=== PATIENT | male | born 1950 | race Caucasian/White ===

== ENCOUNTER 2023-04-24 07:51 | Emergency (ER) | payer MEDICARE, SELFPAY ==
[2023-04-24 07:59] VITALS: BP 183/92; PULSE 71; RESP 16; TEMP 36.2; O2SAT 100
[2023-04-24 08:24] LABS: Appearance Urine Clear (Clear); Bilirubin Urine Negative (Negative); Blood Urine Negative (Negative); Color Urine Yellow (Yellow); Glucose Urine UA Negative (Negative); Ketones Urine Trace mg/dL (Negative); Leukocyte Esterase Ur Negative LEU/UL (Negative); Nitrate Urine Negative (Negative); Protein Urine Negative (Negative); Specific Grav Ur 1.016 (1.001-1.035); Urobilinogen Urine 0.2 mg/dL (<2.0)
--- NOTE | 2023-04-24 08:24 | ED.MALEGU ---
HPI - Male Genitourinary General Chief complaint: Urogenital-Male Stated complaint: post op pain Time Seen by Provider: 04/24/23 08:23 Source: patient Mode of arrival: ambulatory Limitations: no limitations History of Present Illness HPI Narrative: 72 yo presents with urinary retention. He was also having post operative pain since surgery at [facility] 2 days ago initially but denies this today. He denies abdominal pain. Last void approximately 8pm. No penile discharge, penile pain, scrotal pain, testicular pain. This has never happened before. He does state he has had prostate issues but has never talked to PCP about this and does not follow with a urologist. No dysuria but does experience pressure. No hematuria but has urgency and frequency. No fevers. Related Data Allergies Allergy/AdvReac Type Severity Reaction Status Date / Time No Known Allergies Allergy Verified 04/24/23 08:19 Exam Narrative: GENERAL: Well-appearing, well-nourished, and in no acute distress. HEAD: Normocephalic, atraumatic. EYES: Non injected, non icteric ENT: Nares clear, no rhinorrhea or epistaxis. NECK: Supple. CHEST: Speaks in full sentences.. No respiratory distress. HEART: Regular rate and rhythm. . ABDOMEN: Soft, nondistended. Non tender to palpation. : Puente catheter draining yellow urine. EXTREMITIES: Normal range of motion. No edema. SKIN: Warm, dry, no rash. NEURO: No focal deficits. Alert and oriented x3. PSYCH: Normal mood and affect. Course Vital Signs Vital signs: Vital Signs Temperature 97.2 F L 04/24/23 07:59 Pulse Rate 71 04/24/23 07:59 Respiratory Rate 16 04/24/23 07:59 Blood Pressure 183/92 H 04/24/23 07:59 Pulse Oximetry 100 04/24/23 07:59 Temperature 97.2 F L 04/24/23 07:59 Pulse Rate 71 04/24/23 07:59 Respiratory Rate 16 04/24/23 07:59 Blood Pressure 183/92 H 04/24/23 07:59 Pulse Oximetry 100 04/24/23 07:59 MDM - Male Genitourinary MDM Narrative Medical decision making narrative: Patient presents with acute inability to void with urinary retention. He did have surgery somewhat recently. Last void was yesterday PM. Bladder scan reveals 800cc urine. Puente catheter inserted prior to my exam. This could be the result of residual anesthesia contributing however I would suspect this is more likely due to enlarged prostate given patient's age and report of prostate related symptoms he has noticed previously. No evidence of urinary tract infection on urinalysis, only trace ketones consistent with very mild dehydration. Stable for discharge home with indwelling Puente to follow up with urology. Strict ED return precautions. Differential Diagnosis Differential diagnosis: Likely urinary tract infection and acute retention of urine Lab Data Attestation: I reviewed the patient's lab results. Labs: Lab Results 04/24/23 Range/Units 08:11 Urine Color Yellow (Yellow) Urine Appearance Clear (Clear) Urine pH 6.0 (5.0-9.0) Ur Specific [place] 1.016 (1.001-1.035) Urine Protein Negative (Negative) mg/dL Urine Glucose (UA) Negative (Negative) mg/dL Urine Ketones Trace H (Negative) mg/dL Ur Blood (Man) Negative (Negative) Urine Nitrate Negative (Negative) Urine Bilirubin Negative (Negative) Urine Urobilinogen 0.2 (<2.0) mg/dL Leukocyte Esterase Rfl Negative (Negative) MALLY/UL Discharge Plan Discharge Clinical Impression: Acute retention of urine Patient Disposition: Home, Self-Care Condition: Stable Instructions: Antibiotic Form, Urinary Retention in Men (ED), Puente Catheter Placement and Care (ED) Additional Instructions: No evidence of a urinary tract infection. Maintain your hydration. As we discussed, you can use the Puente catheter bag OR the more discrete leg bag you will be given. You will follow up with urology. Call to make an appointment. Return to the ED if any new/worsening symptoms such as bleeding, fevers, c
[2023-04-24 08:29] LABS: Add Urine Microscopic? NO
== END 2023-04-24 09:13 | disposition home or self-care (01) ==
PROVIDERS: Emergency Provider Student in an Organized Health Care Education/Training Program
DX: R33.9 Retention of urine, unspecified (principal)
CPT/HCPCS: 51702; 81003; 99283

== ENCOUNTER 2025-04-26 18:12 | Emergency (ER) | payer MEDICARE, SELFPAY ==
--- OUTSIDE RECORDS SUMMARY | 2024-04-17 15:30 | XMS_ITS ---
Author Organization [facility] Address [facility] Marquita Mercedes [facility] [address] [place], [place] [id number] Care Team Providers Care Slag Wheeler Name Role Phone Luís Munoz DO Primary Care Provider UnavailZain Hansen Unavailable [phone] Migration, Provider Unavailable Unavailable REASON FOR VISIT Multum To Medispan Conversion Encounter Medications Medication SIG (Take, Route, Frequency, Duration) Notes Start Date End Date Status Cefuroxime Axetil 250 MG Tablet 1 tab(s) orally 2 times a day; Duration: 10 day(s) 03/13/2016 Active Encounters Encounter Location Date Provider Diagnosis [facility] [place] [address] [address] [facility] [address], [place] [id number] 04/17/2024 Provider Migration Plan Of Treatment No Information Progress Notes * Blayne VALENCIA EDOB:1950 ( 74 yo M)Acc No.[id number]:04/17/2024 Patient: Tarun luci Blayne Mcneil Provider: Elena Landin :1950 A ge:73 Y S ex:Male Date:04/17/2024 Address:[address] [place], [place] [id number] Pcp:Luís Munoz DO Subjective: * Chief Complaints: * M ultum To Medispan Conversion Encounter * Medications: T akingCefuroxime Axetil 250 MG Tablet 1 tab(s) orally 2 times a day Taking Cefuroxime Axetil 250 MG Tablet 1 tab(s) orally 2 times a day * Electronic signature of Prov ider Migration on 04/26/2025 at 06:14 PM INTERNIST MEDICAL DOCTOR MD Sign off status: Pending * Provider: Elena Landin Date: 06/18/2023 Generated for Printi ng/Daniel/Ruma on: 1 06/27/2024 06:14 PM INTERNIST MEDICAL DOCTOR MD
--- NOTE | ~2025-04-26 | XR_ITS ---
EXAMINATION: XR chest 2V 04/26/2025 20:27 INDICATION: Weakness PROCEDURE: 2 view chest COMPARISON: No prior studies for comparison. FINDINGS: The lungs are clear. The cardiomediastinal silhouette is within normal limits. There are no pleural effusions. There is no pneumothorax suspected. IMPRESSION: 1: NO ACUTE CARDIOPULMONARY DISEASE. Reviewed, dictated and finalized at location [facility]
--- OUTSIDE RECORDS SUMMARY | 2025-04-26 18:14 | XMS_ITS | Patient Health Record ---
Author Organization [facility] Address [address] [place], [place] [id number] Care Team Providers Care Density Control Puncher Name Role Phone Luís Munoz DO Primary Care Provider Zain Trevizo Unavailable [phone] Reason For Referral No Information Medications Medication SIG (Take, Route, Frequency, Duration) Notes Start Date End Date Status Cefuroxime Axetil 250 MG Tablet 1 tab(s) orally 2 times a day; Duration: 10 day(s) 03/13/2016 Active Immunizations Vaccine Route Administration Date Status Comme nts Influenza Unknown 11/29/2015 Refused Influenza Unknown 12/20/2015 Refused Social History Social History Additional Details Category Social Info Options Details Social History Occupation Yes business owne r Passive smoke exp: No Smokeless Tobacco No Recreational drug use No Problems Problem Type SNOMED Code ICD Code Onset Dates Problem Status W/U Status Risk Notes Problem Chronic pansinusitis (73996865) Chronic pansinusitis (J32.4) Active confirmed Problem Chronic pansinusitis (73695387) Chronic pansinusitis (J32.4) Active confirmed Plan Of Treatment No Information Insurance Providers Payer Name Payer Address Payer Phone Subscriber Number Group Number Insured Name Patient Relationship to Insured Coverage Start Date Coverage End Date [facility] [address] [address] [place] [address] [id number] Blayne Valencia Self - patient is the insured Medical (General) History Medical History History ICD Code Pertinent Medical History: Eye problems, Sinusitis, Pertinent Medical History: S inusitis, History of Allergies, Throat/Neck problems, High blood pressure, Asthma, Diabetes, Thyroid problems, History of breast cancer, Other, Surgical History Surgery Date(Month/Year) hernia repair 1980 sinus surgery 2004 Sinus surgery 03/08/2016
--- OUTSIDE RECORDS SUMMARY | 2025-04-26 18:14 | XMS_ITS | Clinical Summary ---
Author Organization [facility] Address [address] [place] [address] Care Team Providers Care Investigation Specialist Name Role Phone Luís Munoz MD Primary Care Provider [phone] Source Comments [facility] [employer],non-owned Affiliates and Associated Physician Practices is amultiple site organization consisting of ambulatory clinics and hospital sitesin [place], [place], [place] and [place]. This disclosure is being madepursuant to the Care Everywhere program and may not contain all information available regarding this patient. Last updated 18.[facility] [employer] Social History Tobacco Use Types Packs/Day Years Used Date Smoking Tobacco: Never Assessed Sex and Gender Information Value Date Recorded Sex Assigned at Not on file Legal Sex Male 12:51 PM CDT Gender Identity Not on file Sexual Orientation Not on file Plan of Treatment Health Maintenance Due Date Last Done Comments COLOGUARD (AGES 45-75) - COL ON CA SCREENING 1950 COLON MONITORING 1950 COLONOSCOPY - COLON CA SCREENING 1950 CT COLONOGRAPHY - COLON CA SCREENING 1950 Colorectal Cancer Screening 1950 FIT - COLON CA SCREENING 1950 FLEX SIG - COLON CA SCREENING 1950 LIPID TESTING 1950 HEPATITIS C SCREENING 08/26/1969 DTAP/TDAP/TD VACCINES (1 - Tdap) 08/30/1970 PNEUMOCOCCAL VACCINE 50+ (1 of 1 - PCV) 08/30/2001 ZOSTER VACCINE (1 of 2) 08/30/2001 DEPRESSION SCREENING 05/05/2024 COVID-19 VACCINE (1 - 2024-2 6 season) 2025 INFLUENZA VACCINE (#1) 2025 Respiratory Syncytial Virus (RSV) Vaccine Pt: or over 60 yrs (1 - 1-dose 75+ series) 08/30/2026 HEPATITIS B VACCINE Aged Out No longe r eligible based on patient's age to complete this topic HIB VACCINE Aged Out No longer eligi ble based on patient's age to complete this topic HPV VACCINE Aged Out No longer eligi ble based on patient's age to complete this topic MENINGOCOCCAL (Group B) VACC INE SHARED DECISION-MAKING Aged Out No longer eligibl e based on patient's age to complete this topic MENINGOCOCCAL GROUPS A/C/Y/W VACCINE Aged Out No longer eligible b ased on patient's age to complete this topic Insurance UHC MANAGED MEDICARE ADV Care Teams Investigation Specialist Relationship Specialty Start Date End Date Luís Munoz MD [address] [place] [phone] PCP - General 01/16/21
--- OUTSIDE RECORDS SUMMARY | 2025-04-26 18:14 | XMS_ITS | Clinical Summary ---
Author Organization [facility] Address [address] [address] Care Team Providers Care Talent Acquisition Coordinator Name Role Phone AlexanderLuís sanches Primary Care Provider [phone] Allergies No known active allergies Medications cyanocobalamin 1,000 mcg Tablet Take 1,000 mcg by mouth daily. Active sildenafiL, pulm.hypertensi on, (REVATIO) 20 mg Tablet Take 1 Tablet (20 mg) by mouth 3 times daily. 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 Screening PSA (prostate specific antigen) 2022 Prediabetes 09/20/2020 Erectile dysfunction 05/26/2015 Allergic rhinitis due to pollen 06/04/2011 Dyslipidemia 06/04/2011 Hypertrophy of prostate with out urinary obstruction and other lower urinary tract symptoms (LUTS) 04/09/2010 Encounters Date Type Department Care Team Description 04/20/2025 Prep for Surgery [facility] Surgical Spec [place] [address] [place] [address] Smiley Kendall, RN Right inguinal hernia (Primary Dx) 04/16/2025 External Device Data STL ABSTRACTION Provider, Abstract 04/12/2025 2:45 PM PVC MONITOR History & Physical [facility] Surgical Spec [place] [address] [place] [phone] Mike Cadena MD Right inguinal hernia (Primary Dx) 04/12/2025 Telephone [facility] Surgical Spec [place] [address] [place] [phone] Mike Cadena MD Surgery 04/05/2025 11:15 AM PVC MONITOR Office Visit [facility] Internal Medicine [place] [address] [address] [place] [place] [address] Luís Munoz DO Right inguinal hernia (Primary Dx) 03/28/2025 Telephone [facility] Internal Medicine [place] [address] [address] [place] [phone] Luís Munoz DO Needs Orders Written 03/15/2025 External Device Data STL ABSTRACTION Provider, Abstract 03/01/2025 Refill [facility] Internal Medicine [place] [address] [address] [place] [address] Luís Munoz DO Seasonal allergic rhinitis due to pollen 02/08/2025 External Device Data STL ABSTRACTION Provider, Abstract from Last 3 Months Family History Medical History Relation Name Comments Colon Cancer Father Other Father Alzheimer's Liver Cancer Maternal Grandfather Cancer Mother lymphoma Esophageal Cancer Neg Hx Stomach Cancer Neg Hx Relation Name Status Comments Father Maternal Grandfather Mother Social History Tobacco Use Types Packs/Day Years Used Date Smoking Tobacco: Never Smokeless Tobacco: Never Tobacco Cessation:Counseling Given: Not Answered Alcohol Use Standard Drinks/Week Comments Yes 14 (1 standard drink = 0.6 oz pu re alcohol) couple times per week Financial Resource Strain Answer Date R ecorded How hard is it for you to pa y for the very basics like food, housing, medical care, and heating? Not hard at all 10/22/2021 Food Insecurity Answer Date Recorded In the past 12 months, have you worried that your food would run out before you had money to buy more? Never true 10/22/2021 In the past 12 months, did y ou run out of food and didn't have money to buy more? Never true 10/22/2021 Transportation Needs Answer Date Record ed In the past 12 months, has l ack of transportation kept you from medical appointments or from getting medications? No 10/22/2021 Lack of Transportation (Non-Medical) Not on file 10/22/2021 Feeling Safe Answer Date Recorded Are you in a relationship wi th someone who hurts you emotionally and/or physically? Patient unable to answer 08/20/2023 Food Insecurity Answer Date Recorded Social/Environmental Concerns No concerns Transportation Needs Answer Date Record ed Social/Environmental Concerns No concerns Housing Stability Answer Date Recorded Social/Environmental Concerns No concerns Utility Needs Answer Date Recorded Social/Environmental Concerns No concerns Sex and Gender Information Value Date Recorded Sex Assigned at Not on file Legal Sex Male 4:32 AM PVC MONITOR Gender Identity Not on file Sexual Orientation Not on file Last Filed Vital Signs Vital Sign Reading Time Taken Comments Blood Pressure 124/80 04/12/2025 2:26 PM PVC MONITOR Pulse 58 04/05/2025 10:53 AM PVC MONITOR Temperature 36.7 C (98 F) 08/22/2023 9:37 AM CDT Respiratory Rate 16 07/14/2024 1:25 PM CDT Oxygen Saturation 98% 04/05/2025 10:53 AM PVC MONITOR Inhaled Oxygen Concentration - - Weight 107 kg (236 lb) 04/12/2025 2:26 PM PVC MONITOR Height 177.8 cm (5' 10) 04/12/2025 2:26 PM PVC MONITOR Body Mass Index 33.86 04/12/2025 2:26 PM PVC MONITOR Plan of Treatment Upcoming Encounters Date Type Department Care Team (Latest Contact Info) Description 05/20/2025 10:51 AM PVC MONITOR Hospital Encounter [facility] Operating Room [address] [place] [address] Mike Cadena MD [address] [place] [address] Right inguinal hernia 05/20/2025 10:51 AM PVC MONITOR - 05/20/2025 12:13 PM PVC MONITOR Surgery [facility] Operating Room [address] [place] [address] Mike Cadena MD [address] [place] [address] HERNIA INGUINAL REPAIR 05/27/2025 11:30 AM PVC MONITOR Office Visit [facility] Pulmonology [facility] [address] [place] [address] Mynor Pickett, [facility] [address] [place] [address] 06/02/2025 10:00 AM PVC MONITOR Office Visit [facility] Surgical Spec [place] [address] [place] [address] Mike Cadena MD [address] [place] [address] Scheduled Procedures Name Priority Associated Diagnoses Date/Ti me HERNIA INGUINAL REPAIR Right inguinal hernia 05/20/2025 10:51 AM PVC MONITOR Health Maintenance Due Date Last Done Comments FIT-DNA Q 3 years 08/30/1996 FIT/FOBT Q 1 year 08/30/1996 Flex Sig/CT Colonography Q 5 years 08/30/1996 INFLUENZA VACCINE (#1) 2024 COLORECTAL SCREENING 06/05/2025 06/05/2022, 06/05/2022, 06/05/2022, Additional history exists Colorectal Cancer Screening 06/05/2025 RSV VACCINE (60+ or ) (1 - 1-dose 75+ series) 08/30/2026 Medicare Advantage ([place]) Preventative Visit/Annual Wellness Visit Completed 11/10/2024, 11/04/2023, 11/01/2022, Additional history exists Goals Goal Patient Goal Type Associated Problems Recent Progress Patient-Stated? Author Autogenera toby Goal Care Plan Autogenerated Problem No Ivette Rivas Procedures Procedure Name Priority Date/Time Associated Diagnosis Comments COLONOSCOPY REPORT 06/05/2022 10 :07 AM PVC MONITOR from Last 3 Months or Most Recently Relevant to Health Maintenance Results * COLONOSCOPY REPORT (06/05/2022 10:07 AM PVC MONITOR) Narrative Procedure Note Jacob Bernal MD - 06/05/2022 10:06 AM CST [facility] Endoscopy Patient Name: Blayne Valencia Procedure Date: 06/05/2022 Date of : 1950 Attending MD: Jacob Bernal MD, Procedure: Colonoscopy Indications: Change in bowel habits, Family history of colon cancer (father age <60) Patient Profile: Refer to note in patient chart for documentation of history and physical. Providers: Jacob Bernal MD Referring MD: Luís Munoz MD Medicines: Monitored Anesthesia Care Complications: No immediate complications. Procedure: Pre-Anesthesia Assessment: - Prior to the procedure, a History and Physical was performed, and patient medications, allergies and sensitivities were reviewed. The patient's tolerance of previous anesthesia was reviewed. - The risks and benefits of the procedure and the sedation options and risks were discussed with the patient. All questions were answered and informed consent was obtained. - ASA and MP per anesthesia records. See the other procedure note for documentation of the pre-procedure assessment Informed consent was obtained for the procedure, including moderate sedation after risks were discussed. Based on the pre-procedure assessment, including review of the patient's medical history, medications, allergies, and review of systems, the patient was deemed to be an appropriate candidate for sedation. A timeout was performed. Continuous ECG monitoring, pulse oximetry, blood pressure monitoring, and direct observation were performed. The Colonoscope was introduced through the anus and advanced to the cecum, identified by appendiceal orifice and ileocecal valve. The colonoscopy was performed without difficulty. The patient tolerated the procedure well. The quality of the bowel preparation was evaluated using the BBPS ([place] Bowel Preparation Scale) with scores of: Right Colon = 3, Transverse Colon = 3 and Left Colon = 3 (entire mucosa seen well with no residual staining, small fragments of stool or opaque liquid). The total BBPS score equals 9. Findings: The perianal and digital rectal examinations were normal. A 2 mm polyp was found in the cecum. The polyp was sessile. The polyp was removed with a cold biopsy forceps. Resection and retrieval were complete. Two sessile polyps were found in the descending colon. The polyps were 5 to 7 mm in size. These polyps were removed with a cold snare. Resection and retrieval were complete. Many medium-mouthed diverticula were found in the sigmoid colon, descending colon and transverse colon. There was no evidence of diverticular bleeding. The retroflexed view of the distal rectum and anal verge was normal and showed no anal or rectal abnormalities. Impression: - One 2 mm polyp in the cecum, removed with a cold biopsy forceps. Resected and retrieved. - Two 5 to 7 mm polyps in the descending colon, removed with a cold snare. Resected and retrieved. - Diverticulosis in the sigmoid colon, in the descending colon and in the transverse colon. There was no evidence of diverticular bleeding. Recommendation: - Await pathology results. - Repeat colonoscopy in 3 years for surveillance based on pathology results. - High fiber diet. - The findings and recommendations were discussed with the patient. - Discharge patient to home (with escort). Procedure Code(s): --- Professional --- 85901, Colonoscopy, flexible; with removal of tumor(s), polyp(s), or other lesion(s) by snare technique 87827, 59, Colonoscopy, flexible; with biopsy, single or multiple CPT copyright 2020 [employer]. All rights reserved. The codes documented in this report are preliminary and upon chamber worker review may be revised to meet current compliance requirements. Attending Participation: I personally performed the entire procedure. Jacob Bernal MD 06/05/2022 10:06:12 AM This report has been signed electronically. Number of Addenda: [id number] , [place] [address] Jacob Bernal MD GI PROCEDURE ORDERABLES Final Result from Last 3 Months or Most Recently Relevant to Health Maintenance Additional Health Concerns Active Problems Noted Date Diagnosed Date Autogenerated Problem 04/12/2025 Insurance [facility] [id number] RX [employer] RX Member Subscriber Plan / Payer (Ef fective 2016-Present) Name:Erik Blayne Mcneil Relation to Subscriber:Self Name:Erik Blayne Mcneil Payer ID:Not on file Group ID:[id number] Type:RX Medicare Part D Address: [address] [employer] PLANS (INTERNAL) [facility] Plans Advance Directives For more information, please contact: [phone] * Full Code (Latest Code Status on File) Date Activated Date Inactivated Comments 08/20/2023 6:59 PM 08/22/2023 12:58 PM * Full Code Date Activated Date Inactivated Comments 08/20/2023 12:41 PM 08/20/2023 6:59 PM * Full Code Date Activated Date Inactivated Comments 08/20/2023 12:37 PM 08/20/2023 12:41 PM * Full Code Date Activated Date Inactivated Comments 04/22/2023 9:21 AM 04/22/2023 7:03 PM Care Teams Talent Acquisition Coordinator Relationship Specialty Start Date End Date Luís MunozDO [address] [place] [address] PCP - General 07/02/12
--- OUTSIDE RECORDS SUMMARY | 2025-04-26 18:14 | XMS_ITS | Encounter Summary ---
Author Organization [facility] Address [address] [place] [address] Care Team Providers Care Foreign Banknote Teller Name Role Phone Luís Munoz MD Primary Care Provider [phone] Encounter Details Date Type Department Care Team (Late st Contact Info) Description 01/16/2021 Lab Requisition [facility] DermPath Lab [address] [facility] [place] [id number] Ted Barnhart MD [address] [place] [id number] Social History Tobacco Use Types Packs/Day Years Used Date Smoking Tobacco: Never Assessed Sex and Gender Information Value Date Recorded Sex Assigned at Not on file Legal Sex Male 12:51 PM CDT Gender Identity Not on file Sexual Orientation Not on file documented as of this encounter Plan of Treatment Not on file documented as of this encounter Procedures Procedure Name Priority Date/Time Associated Diagnosis Comments DERMATOPATHOLOGY Routine 01/15/2021 12:0 0 AM CDT documented in this encounter Results * DERMATOPATHOLOGY (01/15/2021 12:00 AM CDT) Case Report Dermatopathology Report Case: [id number] Authorizing Provider: Ted Barnhart MD Collected: 01/15/2021 12:00 AM Ordering Location: [facility] DermPath Lab Received: 01/16/2021 01:25 PM Pathologist: Susan Bradley MD Specimen: Skin, left medial canthus 3:11 PM CDT DERMATOPATHOLOGY LABORATORY Final Diagnosis Specimen A. 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 3:11 PM CDT DERMATOPATHOLOGY LABORATORY Gross Description Specimen A: Received is one formalin filled container labeled with the patient's name and designated left medial canthus. The specimen consists of a shave biopsy measuring [id number] & [id number]. Jar 0. 3:11 PM CDT DERMATOPATHOLOGY LABORATORY Microscopic Description Specimen A. SKIN, left medial canthus: Sections show acanthosis, papillomatosis, hyperkeratosis, and squamous eddies. There is a lymphohistiocytic infiltrate within the papillary dermis. Mib-1 reveals a low proliferative index within the tumor. Additional deeper sections were obtained and reviewed. 3:11 PM CDT DERMATOPATHOLOGY LABORATORY Disclaimer An external and internal positive and negative controls are appropriate for the histochemical, immunohistochemical and immunofluorescence stain(s) in this case (if any), except where stated explicitly. The performance characteristics of the stain(s) cited in this report were developed and its performance characteristic determined by the Dermatopathology Laboratory at [facility], directed by Dr. Juan Jose Diaz. These tests need not be, and therefore are not, approved by the [place] Food and Drug Administration. The tests are used for clinical purposes. Billing Codes Specimen Charges Stain Charges 11498 1 62850 1 3:11 PM CDT DERMATOPATHOLOGY LABORATORY Embedded Images 3:11 PM CDT DERMATOPATHOLOGY LABORATORY Pathology/Cytolog y TISSUE SPECIMEN FROM SKIN / Unknown 01/15/2021 01/16/2021 1:25 PM CDT us Ted Barnhart MD LAB - PATHOLOGY/CYTOLOGY ORDERA BLES Final Result DERMATOPATHOLOGY LABORATORY [facility] - Department of Dermatology [address] [place] [address], [facility] [phone] documented in this encounter Visit Diagnoses Not on filedocumented in this encounter Care Teams Foreign Banknote Teller Relationship Specialty Start Date End Date Luís Munoz MD [address] [place] [phone] PCP - General 01/16/21 documented as of this encounter
[2025-04-26 18:19] VITALS: BP 187/76; PULSE 89; RESP 19; TEMP 37.2; O2SAT 97
[2025-04-26 20:17] VITALS: PULSE 83; RESP 16; TEMP 37.2; O2SAT 99
[2025-04-26 20:40] VITALS: BP 202/90
--- OUTSIDE RECORDS SUMMARY | 2025-04-26 21:35 | XMS_ITS | Clinical Summary ---
Author Organization [facility] Address [address] [place] [address] Care Team Providers Care Fishing Floats Assembler Name Role Phone Luís Munoz MD Primary Care Provider [phone] Source Comments [facility],non-owned Affiliates and Associated Physician Practices is amultiple site organization consisting of ambulatory clinics and hospital sitesin [place], [place], [place] and [place]. This disclosure is being madepursuant to the Care Everywhere program and may not contain all information available regarding this patient. Last updated 18.[facility] Social History Tobacco Use Types Packs/Day Years [...] this topic Insurance [employer] [place] [address] Care Teams Fishing Floats Assembler Relationship Specialty Start Date End Date Luís Munoz MD [address] [place] [phone] PCP - General 01/16/21
--- OUTSIDE RECORDS SUMMARY | 2025-04-26 21:35 | XMS_ITS | Encounter Summary ---
Author Organization [facility] Address [address] [place] [address] Care Team Providers Care Window Air Conditioner Installer Name Role Phone Luís Munoz MD Primary Care Provider [phone] Encounter Details Date Type Department Care Team (Late st Contact Info) Description 01/16/2021 Lab Requisition [facility] DermPath Lab [address] [place] [phone] Ted Barnhart MD [address] [place] [phone] Social History Tobacco Use Types Packs/Day Years [...] AM CDT) Case Report Dermatopathology Report Case: [id number] Authorizing Provider: Ted Barnhart MD Collected: 01/15/2021 12:00 AM Ordering Location: [facility] DermPath Lab Received: 01/16/2021 01:25 PM [...] specimen consists of a shave biopsy measuring [id number] & [id number]. Jar 0. 3:11 PM CDT DERMATOPATHOLOGY LABORATORY [...] characteristic determined by the Dermatopathology Laboratory at [facility], directed by Dr. Juan Jose Diaz. These tests need not be, and therefore are not, approved by the [place] Food and Drug Administration. The tests are used for clinical purposes. Billing Codes Specimen Charges Stain Charges 73066 1 06921 1 3:11 PM CDT DERMATOPATHOLOGY LABORATORY Embedded Images 3:11 PM CDT DERMATOPATHOLOGY LABORATORY Pathology/Cytolog y TISSUE SPECIMEN FROM SKIN / Unknown 01/15/2021 01/16/2021 1:25 PM CDT us Ted Barnhart MD LAB - PATHOLOGY/CYTOLOGY ORDERA BLES Final Result DERMATOPATHOLOGY LABORATORY [facility] - Department of Dermatology [address] [place] [address], [facility] [phone] documented in this encounter Visit Diagnoses Not on filedocumented in this encounter Care Teams Window Air Conditioner Installer Relationship Specialty Start Date End Date Luís Munoz MD [address] [place] [phone] PCP - General 01/16/21 documented as of this encounter
[2025-04-26] MEDS: KETOROLAC 30 MG/ML VIAL (*BKC) IM (22:22)
[2025-04-26] MEDS: ACETAMINOPHEN 500 MG TABLET 1000 MG PO (22:26)
[2025-04-26 22:48] LABS: Strep Group A RT-PCR NOT DETECTED (Negative)
[2025-04-26 23:07] LABS: Influenza A QL RT-PCR Negative (Negative); Influenza B QL RT-PCR Negative (Negative); RSV RNA, RT-PCR Negative (Negative); SARS-CoV-2 RNA PCR Positive (Negative)
[2025-04-27 00:16] VITALS: BP 165/82; PULSE 82; RESP 16; TEMP 37; O2SAT 95
--- NOTE | 2025-04-27 02:05 | ED.GENADULT ---
HPI - General Adult General Chief complaint: Upper Respiratory Infection Stated complaint: sore throat Time Seen by Provider: 04/26/25 20:56 History of Present Illness HPI narrative: 74-year-old male coming in with complaints of upper respiratory symptoms beginning this past Friday. He reports symptoms including fatigue, dysphagia/hoarseness, congestion/postnasal drip, and cough. He states he has no significant past medical history. Denies chest pains/shortness of breath or fevers/chills. Related Data Allergies Allergy/AdvReac Type Severity Reaction Status Date / Time No Known Allergies Allergy Verified 04/26/25 18:22 Review of Systems Review of Systems: All systems reviewed & are unremarkable except as noted in HPI and below Exam Narrative: GENERAL: No acute distress. Uncomfortable. HEAD: Normocephalic, atraumatic. EYES: PERRLA and EOMI. ENT: Nares clear, no rhinorrhea or epistaxis. Mucous membranes moist. Oropharynx without tonsillar hypertrophy exudate or other lesions. Bilateral TMs pearly rasmussen non-bulging NECK: Supple. No adenopathy or masses. No carotid bruits or JVD CHEST: Clear to auscultation. No respiratory distress. No wheezes rales or rhonchi HEART: Regular rate and rhythm. No murmur heard. Normal peripheral pulses. ABDOMEN: Soft, nontender, nondistended, normal active bowel sounds. EXTREMITIES: Normal range of motion. No edema. SKIN: Warm, dry, no rash. NEURO: No focal deficits. Alert and oriented x3. PSYCH: Normal mood and affect Course Vital Signs Vital signs: Vital Signs Temperature 98.9 F 04/26/25 18:19 Pulse Rate 89 04/26/25 18:19 Respiratory Rate 19 04/26/25 18:19 Blood Pressure 187/76 H 04/26/25 18:19 Pulse Oximetry 97 04/26/25 18:19 Oxygen Delivery Room Air 04/26/25 18:19 Temperature 98.6 F 04/27/25 00:16 Pulse Rate 82 04/27/25 00:16 Respiratory Rate 16 04/27/25 00:16 Blood Pressure 165/82 H 04/27/25 00:16 Pulse Oximetry 95 04/27/25 00:16 Oxygen Delivery Room Air 04/26/25 18:19 [facility] MDM Narrative Medical decision making narrative: 74-year-old male coming in with complaints of upper respiratory symptoms beginning this past Friday. He reports symptoms including fatigue, dysphagia/hoarseness, congestion/postnasal drip, and cough. He states he has no significant past medical history. Denies chest pains/shortness of breath or fevers/chills. Upon my initial assessment patient appears uncomfortable with an elevated blood pressure for which he endorses is abnormal for him but nontoxic. Chest x-ray without acute abnormalities. Patient tested positive for COVID. Administered Solu-Medrol, Toradol, and Tylenol with patient stating that this improved his symptoms immensely. Instructed on the use of Tylenol and ibuprofen outpatient as needed for aches and pains. Differential diagnosis and treatment plan were discussed with the patient. Patient agrees with discussion and after shared medical decision making agrees with plan of care. All questions were answered to the patient's satisfaction. The patient is appropriate for outpatient treatment and follow-up. Given reasons to return. Differential Diagnosis Differential Diagnosis: Differential diagnostic considerations for upper respiratory infection include upper respiratory infection, croup, otitis media, sinusitis, viral infection, bronchitis, influenza, pharyngitis, strep, uvulitis. Medical Records I have reviewed the following patient records and this information was taken into consideration when formulating the assessment and plan.: previous labs and previous ER visits Lab Data Labs: Lab Results 04/26/25 Range/Units 22:19 Influenza A (RT-PCR) Negative (Negative) Influenza B (RT-PCR) Negative (Negative) RSV (RT-PCR) Negative (Negative) SARS-CoV-2 RNA (RT-PCR) Positive A (Negative) Group A Strep (PCR) Not detected (Negative) Imaging Data Attestation: I personally reviewed and interpreted this imaging study as follows: Radiologist's impression: ITS Impressions Chest X-Ray 04/26/25 20:38 IMPRESSION: 1: NO ACUTE CARDIOPULMONARY DISEASE. Discharge Plan Discharge Clinical Impression: COVID-19 Patient Disposition: Home Condition: Stable Instructions: COVID-19 (Coronavirus Disease 2019) (ED) Additional Instructions: Patient has been advised to remain well-hydrated, get plenty of rest, no work or school for several days. Return to the emergency department if you experience fever, chest pain, shortness of breath, abdominal pain with nausea and vomiting, weakness, numbness/tingling, or any other symptoms that are concerning to you. Take anti-inflammatories (Aleve, Ibuprofen, Naproxen, etc) and Tylenol as needed for pain. Max dosing of Ibuprofen daily is 3,200 mg so you may take 800 mg every 6 hours. Max dose of Tylenol is 4,000 mg so you may take 1,000 mg every 6 hours. Do these interchangeably as needed for pain. Patient Language: Haitian Follow-up/Referrals: PHYSICIAN NOT ON STAFF,NONSTAFF [Primary Care Provider]
== END 2025-04-27 00:17 | disposition home or self-care (01) ==
DX: U07.1 COVID-19 (principal)
CPT/HCPCS: 71046; 87637; 87651; 96372; 99284; A9270; J1885; J2919